=== PATIENT | male | born 1980 | race African-American/Black ===

== ENCOUNTER 2018-06-18 08:03 | Emergency (ER) | payer BC, OTHER ==
[~2018-06-18] VITALS: Ht 180.3 cm; Wt 74.8 kg
[~2018-06-18 08:03] MED LIST: NAPROSYN500 MG PO; NOHOMEMEDICATIONS; XANAX 0.5 MG0.5 M1 PO
[2018-06-18] MEDS ORDERED: NORCO 5-325 TA1 EACH PO (10:01)
[2018-06-18] MEDS ORDERED: LIDOCAINE1 EACH TRANSDERM (10:01)
[2018-06-18 10:22] VITALS: BP 121/79
== END 2018-06-18 10:23 | disposition home or self-care (01) ==
LOC: ER 08:03 → EDSEX 08:03 → ER 10:23
DX: S20.212A Contusion of left front wall of thorax, initial encounter (principal); W19.XXXA Unspecified fall, initial encounter; Y93.89 Activity, other specified; Y92.89 Other specified places as the place of occurrence of the external cause; Y99.8 Other external cause status

== ENCOUNTER 2018-06-23 22:32 | Emergency (ER) | payer BC, OTHER ==
[~2018-06-23] VITALS: Ht 172.7 cm; Wt 74.8 kg
[~2018-06-23 22:32] MED LIST changes: +LIDOCAINE1 EACH TRANSDERM; +NORCO 5-325 TA1 EACH PO
[2018-06-24] MEDS ORDERED: NABUMETONE 750750 M1 PO (00:18)
[2018-06-24] MEDS ORDERED: ULTRAM 50MG TAB50 MG PO (00:18)
[2018-06-24 00:30] VITALS: BP 107/56
== END 2018-06-24 03:27 | disposition home or self-care (01) ==
LOC: ER 22:32
DX: S20.212A Contusion of left front wall of thorax, initial encounter (principal); F17.210 Nicotine dependence, cigarettes, uncomplicated; X58.XXXA Exposure to other specified factors, initial encounter; Y93.89 Activity, other specified; Y92.89 Other specified places as the place of occurrence of the external cause; Y99.8 Other external cause status

== ENCOUNTER 2019-09-24 04:11 | Emergency (ER) | payer OTHER ==
[~2019-09-24] VITALS: Ht 172.7 cm; Wt 83.5 kg
[~2019-09-24 04:11] MED LIST changes: +NABUMETONE 750750 M1 PO; +ULTRAM 50MG TAB50 MG PO
[2019-09-24] MEDS ORDERED: NORCO 5-325 TA1 EAC1 PO (05:09)
[2019-09-24] MEDS ORDERED: NAPROSYN500 MG PO (05:09)
[2019-09-24 05:37] VITALS: BP 142/98
== END 2019-09-24 05:37 | disposition home or self-care (01) ==
LOC: ER 04:11
DX: S63.055A Dislocation of other carpometacarpal joint of left hand, initial encounter (principal); F17.210 Nicotine dependence, cigarettes, uncomplicated; W22.8XXA Striking against or struck by other objects, initial encounter; Y92.89 Other specified places as the place of occurrence of the external cause; Y93.89 Activity, other specified; Y99.8 Other external cause status